=== PATIENT | female | born 1995 | race American Indian/Alaskan Native ===

== ENCOUNTER 2024-10-09 22:30 | Emergency (ER) | payer OTHER ==
[~2024-10-09] VITALS: Ht 160 cm; Wt 75.3 kg
[2024-10-09 23:04] LABS: APPEARANCE,URINE CLEAR (CLEAR); BILIRUBIN,URINE NEGATIVE (NEGATIVE); COLOR,URINE YELLOW (YELLOW); GLUCOSE, URINE (UA) NEGATIVE (NEGATIVE); KETONES,URINE NEGATIVE (NEGATIVE); LEUKOCYTE ESTERASE ,URINE NEGATIVE Leu/uL (NEGATIVE); NITRATE,URINE NEGATIVE (NEGATIVE); OCCULT BLOOD,URINE SMALL (NEGATIVE); PH,URINE 7.5 (5.0-8.0); PROTEIN,URINE 600 mg/dL (NEGATIVE); UROBILINOGEN,URINE 0.2 mg/dL (0.2-1.0)
[2024-10-09 23:08] LABS: ADD UA MICROSCOPIC YES
[2024-10-09 23:10] LABS: MUCUS,URINE RARE LPF (None Seen); SQUAMOUS EPITHELIAL CELL,UR FEW /HPF (0-2)
--- NOTE | 2024-10-09 23:18 | ERN ---
ED Note History of Present Illness Stated Complaint: LLQ ABD PAIN Chief Complaint: Abdominal Pain Time Seen by MD: 22:52 Dictation: 29-year-old female who presents to the ER complaining of left lower abdominal pain , it is associated with a nausea vomiting.Patient reports that abdominal pain started earlier this morning. Nobody else sick home.Denies fever, chills, diarrhea. Allergies: Coded Allergies: No Known Drug Allergies (Unverified Allergy, Unknown, 10/09/24) Home Meds Active Scripts Tamsulosin HCl (Flomax) 0.4 Mg Cap.er.24h, 0.4 MG PO DAILY, #7 CAPSULE.DR Prov:CECILY SELF MD 10/10/24 Ketorolac Tromethamine (Toradol) 10 Mg Tab, 1 TAB PO Q6HPRN PRN for pain for 5 Days, #20 TAB 0 Refills Prov:CECILY SELF MD 10/10/24 Past Medical History Past Medical History: No Pertinent History Surgical History: None LMP: Sep 27, 2024 Review of System Dictation NEGATIVE EXCEPT PER HPI Constitutional: Negative for fever,chills, and weight loss Eyes: Negative for injury, pain,redness, and discharge ENT: Negative for injury,pain or swelling Cardiovascular: denies chest pain, palpitations, and edema Respiratory: Negative for shortness of breath, cough, and wheezing, Abdomen/GI: Left lower quadrant abdominal pain Back: Negative for injury and pain : Negative for injury, bleeding and discharge MS/Extremity: Negative for injury and deformity Skin: Negative for rash, and discoloration Neuro: Negative for headache, weakness, numbness, tingling, and seizure Psych: Negative for suicide ideation, homicidal ideation, and hallucinations Initial Vital Sign VS Vital Signs Date Time Temp Pulse Resp B/P (MAP) Pulse Ox O2 Delivery O2 Flow Rate FiO2 10/09/24 22:32 98.8 85 18 113/81 98 0 10/09/24 23:53 Room Air* 21 Physical Exam Dictation General: awake, alert, NAD Head/Face: Normocephalic, atraumatic Eyes: PERRL, EOMI, vision at baseline ENT: oral cavity clear, TMs clear, no signs of infection Neck: Trachea midline, supple, no nuchal rigidity Cardiovascular: RRR, normal S1/S2, No MRGs, no JVD Respiratory: CTAB, no respiratory distress, No rales or wheezes Abdomen: Soft , no tender Skin: Warm, dry, normal turgor, no rash MS/Extremity: Pulses equal, no cyanosis, neurovascular intact, FROM Neuro: COAx4, GCS 15, strength 5/5, CN 2-12 intact, normal cerebellar exam, nor mal gait, Psych: Normal behavior, mood, and affect normal Results (Laboratory/Radiology) Laboratory/Radiology Laboratory Tests Test 10/09/24 22:40 10/09/24 23:25 Urine Color YELLOW (YELLOW) Urine Appearance CLEAR (CLEAR) Urine pH 7.5 (5.0-8.0) Urine Specific [place] 1.026 (1.001-1.031) Urine Protein 600 mg/dL (NEGATIVE) H Urine Glucose (UA) NEGATIVE mg/dL (NEGATIVE) Urine Ketones NEGATIVE mg/dL (NEGATIVE) Urine Occult Blood SMALL (NEGATIVE) H Urine Nitrate NEGATIVE (NEGATIVE) Urine Bilirubin NEGATIVE mg/dL (NEGATIVE) Urine Urobilinogen 0.2 mg/dL (0.2-1.0) Urine Leukocyte Esterase NEGATIVE Abby/uL Urine RBC 6-10 /HPF (0-1) H Urine WBC 2-5 /HPF (0-1) H Urine Squamous Epithelial Cells FEW /HPF (0-2) Urine Bacteria None /HPF (None Seen) Urine HCG, Qualitative NEGATIVE (NEGATIVE) White Blood Count 9.0 K/uL (4.8-10.8) Red Blood Count 4.78 MIL/uL (4.00-5.50) Hemoglobin 14.0 g/dL (12.0-16.0) Hematocrit 40.2 % (36-48) Mean Corpuscular Volume 84.1 fL (79-99) Mean Corpuscular Hemoglobin 29.3 pg (27.0-33.0) Mean Corpuscular Hemoglobin Concent 34.8 g/dL (32.0-36.0) Red Cell Distribution Width 12.9 % (11.0-15.5) Platelet Count 265 K/uL (130-400) Mean Platelet Volume 9.0 fL (7.5-10.5) Immature Granulocyte % (Auto) 0.3 % (0-1) Neutrophils (%) (Auto) 82.5 % (40.0-77.0) H Lymphocytes (%) (Auto) 13.7 % (21.0-51.0) L Monocytes (%) (Auto) 3.2 % (3.0-13.0) Eosinophils (%) (Auto) 0.1 % (0.0-8.0) Basophils (%) (Auto) 0.2 % (0.0-5.0) Neutrophils # (Auto) 7.5 K/uL (1.8-7.7) Lymphocytes # (Auto) 1.2 K/uL (1.0-4.8) Monocytes # (Auto) 0.3 K/uL (0.1-1.0) Eosinophils # (Auto) 0.01 K/uL (0.00-0.70) Basophils # (Auto) 0.02 K/uL (0.00-0.20) Absolute Immature Granulocyte (auto 0.03 K/uL (0-1) Nucleated Red Blood Cells 0.0 % (0.0-0.19) Sodium Level 136 mmol/L (136-145) Potassium Level 3.8 mmol/L (3.5-5.1) Chloride Level 102 mmol/L (101-111) Carbon Dioxide Level 29 mmol/L (21-32) Blood Urea Nitrogen 8 mg/dL (7-18) Creatinine 0.5 mg/dL (0.5-1.0) Glomerular Filtration Rate Calc 132 mL/min (>90) Random Glucose 110 mg/dL (70-105) H Total Calcium 8.6 mg/dL (8.5-10.1) ED Course ED Course Orders Procedure Category Date Status Time Vital Signs Per CPOE 10/09/24 Transmitted Routine 22:35 Saline Lock Iv CPOE 10/09/24 Transmitted 22:35 Cbc With Differential LAB 10/09/24 Complete 22:35 Urinalysis Profile LAB 10/09/24 Complete 22:35 Basic Metabolic Panel LAB 10/09/24 Complete 22:35 ,Urine Test LAB 10/09/24 Complete 22:37 Ct Abdomen/Pelvis W/O CT 10/09/24 Resulted Contrast 23:26 Ketorolac PHA 10/09/24 Complete Tromethamine 15mg/Ml 23:30 Ketorolac PHA 10/10/24 Complete Tromethamine 15mg/Ml 00:00 Us Pelvic Non-Ob Comp US 10/10/24 Logged 00:14 0.9%Nacl 1000ml (Ns PHA 10/10/24 Complete 1000ml) 01:00 Tamsulosin Hcl PHA 10/10/24 Complete (Flomax) 02:00 Current Medications Medications (Trade) Dose Ordered Sig/Dorota Route PRN Reason Start Time Stop Time Status Last Admin Dose Admin Ketorolac Tromethamine (toRADol) 15 mg ONCE ONCE IM 10/10/24 00:00 10/10/24 00:01 DC 10/10/24 00:06 Ketorolac Tromethamine (toRADol) 15 mg ONCE ONCE IV 10/09/24 23:30 10/09/24 23:55 DC Sodium Chloride 1,000 ml @ 0 mls/hr ONCE ONCE IV 10/10/24 01:00 10/10/24 01:01 DC 10/10/24 01:13 Tamsulosin HCl (FloMAX) 0.4 mg ONCE ONCE PO 10/10/24 02:00 10/10/24 02:01 DC 10/10/24 02:01 Vital Signs Date Time Temp Pulse Resp B/P (MAP) Pulse Ox O2 Delivery O2 Flow Rate FiO2 10/09/24 23:53 97.5 73 17 119/66 100 Room Air* 0 21 10/09/24 22:32 98.8 85 18 113/81 98 0 Medical Decision Making MDM 29-year-old female who presents to the ER complaining of left lower abdominal pain , it is associated with a nausea vomiting.Patient reports that abdominal pain started earlier this morning. Nobody else sick home.Denies fever, chills, diarrhea. Laboratory ordered including CBC, BMP and UA FINDINGS: No pleural effusion is seen bilaterally. There is no evidence of parenchymal disease or pulmonary nodule of the visualized lower lungs. Degenerative changes of the thoracolumbar spine are present. The heart is not enlarged. Liver measures 14.2 cm. The liver, spleen, adrenal glands and pancreas are unremarkable. No hydronephrosis is seen on the right. There is left hydronephrosis and left hydroureter may be related to recently passed stone versus nonradiopaque stone versus pyelonephritis. Urinalysis correlation may be helpful. No evidence of renal stone is seen. Fecal material is seen in the colon. There are normal size retroperitoneal and mesenteric lymph nodes. No ascites is seen. No CT evidence of acute appendicitis is seen. Clinical correlation is recommended. Pelvic sidewalls are symmetric bilaterally. Bladder is poorly distended. IMPRESSION: 1. No hydronephrosis is seen on the right. There is left hydronephrosis and left hydroureter may be related to recently passed stone versus nonradiopaque stone versus pyelonephritis. Urinalysis correlation may be helpful. UA negative for UTI According to reports the posterior with the patient's complaints was related to left side kidney stone which she passed. I explained to the patient that likely that she passed a stone but is opposed with the patient has a no radiopaque stone and the pain can come back so patient was recommended to come to the ER if the pain returns. DX & DISP Disposition: Discharge Departure Impression: Primary Impression: Nephrolithiasis Additional Impressions: Left nephrolithiasis, Hydronephrosis Condition: Stable Scripts Tamsulosin HCl (Flomax) 0.4 Mg Cap.er.24h 0.4 MG PO DAILY, #7 CAPSULE.DR Prov: CECILY SELF MD 10/10/24 Ketorolac Tromethamine (Toradol) 10 Mg Tab 1 TAB PO Q6HPRN PRN for pain for 5 Days, #20 TAB 0 Refills Prov: CECILY SELF MD 10/10/24 Additional Instructions: RETURN TO ER FOR ANY ACUTE OR WORSENING SYMPTOMS. FOLLOW-UP IN 1-2 DAYS WITH PRIMARY PROVIDER FOR RECHECK OF TODAY'S SYMPTOMS. Time of Disposition: 02:03 CECILY SELF MD Oct 09, 2024 23:18
[2024-10-09] MEDS ORDERED: ketOROlac 15MG/ML VIAL (15MG/ML) IV ONE (23:30)
[2024-10-09 23:41] LABS: BASOPHILS # (AUTO) 0.02 K/uL (0.00-0.20); BASOPHILS % (AUTO) 0.2 % (0.0-5.0); EOSINOPHILS # (AUTO) 0.01 K/uL (0.00-0.70); EOSINOPHILS % (AUTO) 0.1 % (0.0-8.0); HEMATOCRIT 40.2 % (36-48); IMMATURE GRANULOCYTE ABSOLUTE 0.03 K/uL (0-1); LYMPHOCYTES # (AUTO) 1.2 K/uL (1.0-4.8); LYMPHOCYTES % (AUTO) 13.7 % (21.0-51.0); MEAN CORPUSCULAR HEMOGLOBIN 29.3 pg (27.0-33.0); MEAN CORPUSCULAR HGB CONC 34.8 g/dL (32.0-36.0); MEAN CORPUSCULAR VOLUME 84.1 fL (79-99); MONOCYTES # (AUTO) 0.3 K/uL (0.1-1.0); MONOCYTES % (AUTO) 3.2 % (3.0-13.0); NEUTROPHILS # (AUTO) 7.5 K/uL (1.8-7.7); NEUTROPHILS % (AUTO) 82.5 % (40.0-77.0); PLATELET COUNT (AUTO) 265 K/uL (130-400); RED BLOOD CELL COUNT(AUTO) 4.78 MIL/uL (4.00-5.50); RED CELL DISTRIBUTION WIDTH 12.9 % (11.0-15.5)
[2024-10-09 23:52] LABS: CREATININE 0.5 mg/dL (0.5-1.0); POTASSIUM 3.8 mmol/L (3.5-5.1)
[2024-10-10] MEDS: ketOROlac 15MG/ML VIAL (15MG/ML) IM ONE (00:06)
--- NOTE | 2024-10-10 00:51 | HMCIMG ---
CT ABDOMEN/PELVIS W/O CONTRAST HISTORY: Abdominal pain COMPARISON: None TECHNIQUE: Multiple sequential axial images of the abdomen and pelvis were obtained from the dome of the diaphragm through symphysis pubis. Patient was not given contrast through intravenous route. Oral contrast was not given. FINDINGS: No pleural effusion is seen bilaterally. There is no evidence of parenchymal disease or pulmonary nodule of the visualized lower lungs. Degenerative changes of the thoracolumbar spine are present. The heart is not enlarged. Liver measures 14.2 cm. The liver, spleen, adrenal glands and pancreas are unremarkable. No hydronephrosis is seen on the right. There is left hydronephrosis and left hydroureter may be related to recently passed stone versus nonradiopaque stone versus pyelonephritis. Urinalysis correlation may be helpful. No evidence of renal stone is seen. Fecal material is seen in the colon. There are normal size retroperitoneal and mesenteric lymph nodes. No ascites is seen. No CT evidence of acute appendicitis is seen. Clinical correlation is recommended. Pelvic sidewalls are symmetric bilaterally. Bladder is poorly distended. IMPRESSION: 1. No hydronephrosis is seen on the right. There is left hydronephrosis and left hydroureter may be related to recently passed stone versus nonradiopaque stone versus pyelonephritis. Urinalysis correlation may be helpful. CT was performed with one or more following dose reduction techniques: automated exposure control, adjustment of the mA and kv according to patient's size, or use of a iterative reconstruction technique.
[2024-10-10] MEDS: 0.9%NACL 1000ML 1,000 ML IV ONE (01:13)
[2024-10-10] MEDS: tamSULOsin HCL 0.4 MG CAP.ER.24H PO ONE (02:01)
[2024-10-10] MEDS ORDERED: KETO10 PO (02:03)
[2024-10-10] MEDS ORDERED: TAMS-1 PO (02:03)
[2024-10-10 02:07] VITALS: BP 124/64; PULSE 67; RESP 16; TEMP 96.9; O2SAT 100
== END 2024-10-10 02:14 | disposition home or self-care (01) ==
LOC: EDH 22:30
DX: N13.2 Hydronephrosis with renal and ureteral calculous obstruction (principal)
CPT/HCPCS: 99285; 74176; 80048; 85025; 81001; 81025; 36415; 96372; J7030; J1885